=== PATIENT | female | born 1930 | race Caucasian/White ===

== ENCOUNTER → 2016-10-31 | Outpatient (CLI) | payer MEDICARE, OTHER ==
--- NOTE | 2016-10-31 12:03 | RAD ---
Renal ultrasound, 10/31/2016: History: Chronic kidney disease The right kidney measures 8.0 cm in length, while the left kidney measures 8.1 cm. There is bilateral renal cortical thinning and scarring. The renal parenchymal echogenicity is within normal limits. No renal mass is seen. There is no evidence of hydronephrosis. IMPRESSION: 1. Bilateral renal cortical scarring. 2. No evidence of renal obstruction.
== END | disposition home or self-care (01) ==
LOC: US 10:49
PROVIDERS: ATTEND Internal Medicine Nephrology
DX: N18.3 Chronic kidney disease, stage 3 (moderate) (principal); L90.5 Scar conditions and fibrosis of skin
CPT/HCPCS: 76770

== ENCOUNTER → 2017-01-22 | Outpatient (CLI) | payer MEDICARE, OTHER ==
--- NOTE | 2017-01-22 15:14 | RAD ---
Chest, 2 views, 01/22/2017: History: Dyspnea, hoarseness Comparison is made to a study from 12/20/2007. The heart size and pulmonary vascularity are normal. There is calcific plaquing and tortuosity of the thoracic aorta. Persistent linear perihilar opacities are compatible with scars. There is scarring over the pulmonary apices. No acute infiltrate is seen. A calcified granuloma is present in the left base. There is no evidence of pleural fluid. Mild spurring is present in the spine. There is a mild midthoracic vertebral compression fracture which was not present in 2007. Spinal stimulator leads have been removed. Postsurgical change is again noted at the right shoulder. IMPRESSION: 1. Bilateral perihilar linear parenchymal scarring. 2. Aortic atherosclerosis. 3. New mild mid thoracic vertebral compression fracture
== END | disposition home or self-care (01) ==
LOC: DXRADRC 14:25
PROVIDERS: ATTEND Physician Assistant
DX: I70.0 Atherosclerosis of aorta (principal); M48.54XA Collapsed vertebra, not elsewhere classified, thoracic region, initial encounter for fracture; R49.0 Dysphonia; R91.8 Other nonspecific abnormal finding of lung field
CPT/HCPCS: 71020

== ENCOUNTER → 2017-02-12 | Outpatient (CLI) | payer MEDICARE, OTHER ==
--- NOTE | 2017-02-12 13:30 | RAD ---
Bone densitometry scan, 02/12/2017: History: Ovarian failure, osteopenia The lumbar spine and right hip were examined utilizing a DEXA technique. The bone mineral density in the lumbar spine as measured from the L1-L4 levels is 1.25 g/sq cm. This yields a T score of 0.6 which is in the normal range. The lumbar spine T score on the previous study of 12/06/2015 was 0.9. The total T score at the right hip is -2.1 compatible with osteopenia. On the previous study the right hip T score was -1.9. IMPRESSION: 1. Normal lumbar spine bone mineral density. 2. Osteopenia at the right hip which has worsened slightly since 12/06/2015.
--- NOTE | 2017-02-12 14:49 | CARD ---
APPROVED REPORT EXAM: Two-dimensional and M-mode echocardiogram with Doppler and color Doppler. Other Information Quality : Average Rhythm : NSR INDICATION Dyspnea 2D DIMENSIONS Left Atrium(2D)3.8 (1.6-4.0cm)IVSd0.8 (0.7-1.1cm) Aortic Root(2D)2.6 (2.0-3.7cm)LVDd3.9 (3.9-5.9cm) LVOT Diameter2.0 (1.8-2.4cm)PWd0.8 (0.7-1.1cm) LVDs2.7 (2.5-4.0cm)FS (%) 29.7 % SV38.1 mlLVEF(%)57.4 (>50%) Aortic Valve AoV Peak Yobani.229.9cm/sAoV VTI55.7cm AO Peak GR.21.1mmHgLVOT Peak Yobani.116.3cm/s LVOT VTI 28.58cmAO Mean GR.12mmHg KELSIE (VMAX)1.53yk2XCS (VTI)1.57cm2 Mitral Valve MV E Ufzbinvb82.1cm/sMV DECEL UWXT427qp MV A Bhhwppuk94.1cm/sMV BRK10fr E/A Ratio0.9MV A Lbcgpxyq13ym MVA (PHT)3.56cm2 Tricuspid Valve TR P. Jrotyqot160ue/sRAP IEFYWAAQ3jyZf TR Peak Gr.05hfFuRORD94wdLe LEFT VENTRICLE The left ventricle is normal size. There is normal left ventricular wall thickness. Left ventricle sy stolic function is normal. The Ejection Fraction is 55-60%. There is normal LV segmental wall motion. The left ventricular diastolic function and filling is normal for age. RIGHT VENTRICLE The right ventricle is normal size. The right ventricular systolic function is normal. ATRIA The left atrium size is normal. The right atrium size is normal. The interatrial septum is intact wit h no evidence for an atrial septal defect or patent foramen ovale as noted on 2-D or Doppler imaging. AORTIC VALVE The aortic valve is mildly to moderately calcified. The aortic valve is trileaflet. Doppler and Color Flow revealed no significant aortic regurgitation. Calculated aortic valve area is 1.6 cm2 with maxi mum pressure gradient of 22 mmHg and mean pressure gradient of 12 mmHg. Doppler and color-flow analys is revealed mild aortic stenosis. MITRAL VALVE Mitral annular calcification is mild to moderate. There is no mitral valve stenosis. Doppler and [place] r Flow revealed trace mitral regurgitation. TRICUSPID VALVE The tricuspid valve is normal in structure and function. Doppler and Color Flow revealed mild tricusp id regurgitation. The PA pressure was estimated at 42 mmHg. There is no tricuspid valve stenosis. PULMONIC VALVE The pulmonic valve is not well visualized. Doppler and Color Flow revealed no pulmonic valvular regur gitation. There is no pulmonic valvular stenosis. GREAT VESSELS The aortic root is normal in size. Pulmonary veins not recorded. The IVC is normal in size and collap ses >50% with inspiration. PERICARDIAL EFFUSION There is no evidence of significant pericardial effusion. Critical Notification Critical Value: No <Conclusion> Left ventricle systolic function is normal. The Ejection Fraction is 55-60%. There is normal LV segmental wall motion. Doppler and color-flow analysis revealed mild aortic stenosis. Mitral regurgitation. Mild tricuspid regurgitation. The PA pressure was estimated at 42 mmHg. There is no evidence of significant pericardial effusion.
== END | disposition home or self-care (01) ==
LOC: DXRAD 12:52
PROVIDERS: ATTEND Physician Assistant
DX: I08.1 Rheumatic disorders of both mitral and tricuspid valves (principal); E28.39 Other primary ovarian failure; I31.3 Pericardial effusion (noninflammatory); M85.80 Other specified disorders of bone density and structure, unspecified site; M40.204 Unspecified kyphosis, thoracic region; R06.00 Dyspnea, unspecified
CPT/HCPCS: 77080; 93306

== ENCOUNTER → 2017-12-24 | Outpatient (CLI) | payer MEDICARE, OTHER ==
--- NOTE | 2017-12-24 15:20 | RAD ---
EXAM: Lumbar spine, 3 views. HISTORY: Pain. COMPARISON: None. FINDINGS: Frontal, lateral, and coned sacral views of the lumbar spine are obtained. There is minimal lumbar dextrocurvature. There is lumbar hyperlordosis. There is grade 1 anterolisthesis of L4 on L5, measuring 9 mm. There is grade 1 anterolisthesis of L3 on L4, measuring 2 mm. There is degenerative endplate remodeling with disc space narrowing, osteophytosis and facet arthropathy predominantly at L4-L5 and L5-S1. IMPRESSION: 1. Multilevel degenerative change, primarily at the lower lumbar levels. 2. Lumbar hyperlordosis and minimal dextrocurvature. 3. Grade 1 anterolisthesis of L4 and L5, and to a lesser extent, L3 on L4. Electronically signed by: Carmella Sánchez MD (12/24/2017 3:16 PM) [facility]
== END | disposition home or self-care (01) ==
LOC: PMG 14:18
PROVIDERS: ATTEND Physician Assistant
DX: M48.061 Spinal stenosis, lumbar region without neurogenic claudication (principal); M12.88 Other specific arthropathies, not elsewhere classified, other specified site
CPT/HCPCS: 72100

== ENCOUNTER 2018-04-18 11:01 | Emergency (ER) | payer MEDICARE, OTHER ==
[~2018-04-18] VITALS: Ht 160 cm; Wt 62.1 kg
[2018-04-18] MEDS ORDERED: DIPHTH,PERTUSS(ACELL),TET TOX 0.5 ML DISP.SYRIN. VAX IM ONE (11:30)
--- NOTE | 2018-04-18 12:18 | RAD ---
CT of the head without contrast, 04/18/2018: HISTORY: Fall There is moderate cerebral atrophy. There is mild cerebellar atrophy. The ventricles are within normal limits in size. There is no shift of the midline structures. There is no evidence of acute intracranial hemorrhage or mass effect. Several mild bilateral deep white matter lucencies are evident compatible with chronic ischemic change. No abnormal extra-axial fluid collection or mass is seen. There is calcific plaquing of the distal internal carotid arteries. IMPRESSION: 1. Cerebral and cerebellar atrophy. 2. No acute intracranial abnormality is detected. CT of the facial bones without contrast, 04/18/2018: Noncontrast scans were obtained with multiplanar reconstructions produced. No fracture is identified. There is mild mucosal thickening in the left maxillary and right frontal sinuses. No free fluid is evident in the paranasal sinuses. The orbital contents are unremarkable. IMPRESSION: No acute facial bone abnormality is detected. Electronically signed by: Patrick Lugo MD (04/18/2018 12:14 PM) [facility]
--- NOTE | 2018-04-18 12:26 | RAD ---
CT of the cervical spine without contrast, 04/18/2018: HISTORY: Fall Noncontrast scans were obtained with multiplanar reconstructions produced. There is moderate disc space narrowing at C5-6 and C6-7 with anterior and posterior marginal spurring. There is a lesser degree of disc space narrowing at C7-T1. Moderate hypertrophic degenerative changes are evident at multiple facet joints bilaterally. There is slight anterolisthesis at C7-T1 and at C4-5 which appears to be due to facet joint arthropathy. No fracture is identified. No high-grade central spinal stenosis is seen. Moderate foraminal stenosis is present bilaterally at several levels. IMPRESSION: 1. Moderate multilevel degenerative change. 2. No acute bony abnormality is detected. PQRS Compliance Statement: One or more of the following individualized dose reduction techniques were utilized for this examination: 1. Automated exposure control 2. Adjustment of the mA and/or kV according to patient size 3. Use of iterative reconstruction technique Electronically signed by: Patrick Lugo MD (04/18/2018 12:22 PM) [facility]
--- NOTE | 2018-04-18 12:27 | RAD ---
Left shoulder, 3 views, 04/18/2018: HISTORY: Fall The bony structures are demineralized. No fracture or dislocation is identified. Degenerative change is present at the AC joint. IMPRESSION: No acute bony abnormality is detected. Electronically signed by: Patrick Lugo MD (04/18/2018 12:23 PM) [facility]
[2018-04-18] MEDS ORDERED: HYDR-971 PO (13:14)
--- NOTE | 2018-04-18 13:14 | PHYS DOC ---
Past History Past Medical History: Arthritis, High Cholesterol, Hypertension, Other Past Surgical History: Hysterectomy, Other Alcohol Use: None Drug Use: None Adult General Chief Complaint Chief Complaint: MECHANICAL FALL HPI HPI Patient is a 87 year old female who presents with complaining of a fall. Patient states she tripped outside and fell on her face on concrete area without loss of consciousness. Patient complaining of pain in her face and left shoulder and left knee and hand rated her pain 8/10. Patient denies focal neuro deficit, nausea and vomiting, fever and chills. Patient is not up-to-date with tetanus immunization. Review of Systems Review of Systems Constitutional: Denies fever or chills [] Eyes: Denies change in visual acuity, redness, or eye pain [] HENT: Denies nasal congestion or sore throat [] Respiratory: Denies cough or shortness of breath [] Cardiovascular: No additional information not addressed in HPI [] GI: Denies abdominal pain, nausea, vomiting, bloody stools or diarrhea [] : Denies dysuria or hematuria [] Musculoskeletal: Denies back pain or joint pain [] Integument: Denies rash or skin lesions, reports skin contusion and abrasion Neurologic: Denies headache, focal weakness or sensory changes [] Endocrine: Denies polyuria or polydipsia [] All other systems were reviewed and found to be within normal limits, except as documented in this note. Current Medications Current Medications Current Medications Medications (Trade) Dose Ordered Sig/Caio Start Time Stop Time Status Last Admin Dose Admin Diphtheria/ Tetanus/Acell Pertussis (Boostrix) 0.5 ml ONCE ONCE 04/18/18 11:30 04/18/18 11:35 DC 04/18/18 12:17 0.5 ML Fentanyl Citrate (Fentanyl 2ml Vial) 50 mcg 1X ONCE 04/18/18 11:30 04/18/18 11:35 DC 04/18/18 12:24 50 MCG Allergies Allergies Allergies Coded Allergies Type Severity Reaction Last Updated Verified No Known Drug Allergies 04/18/18 No Physical Exam Physical Exam Constitutional: Well developed, well nourished, moderate distress, non-toxic appearance. [] HENT: Normocephalic, facial contusion in nose and upper lips with a through to through 0.5 cm puncture wound in upper lip extended to inside of oral mucosa with struck frenulum upper lip between upper incisor teeth that removed with using a Q-tip , bilateral external ears normal, oropharynx moist, no oral exudates. Eyes: PERRLA, EOMI, conjunctiva normal, no discharge. [] Neck: Normal range of motion, no tenderness, supple, no stridor. [] Cardiovascular:Heart rate regular rhythm, no murmur [] Lungs & Thorax: Bilateral breath sounds clear to auscultation [] Abdomen: Bowel sounds normal, soft, no tenderness, no masses, no pulsatile masses. [] Skin: Warm, dry, no erythema, no rash, multiple abrasion and contusion in the left side extremities. [] Back: No tenderness, no CVA tenderness. [] Extremities: No tenderness, no cyanosis, no clubbing, ROM intact, no edema. [] Neurologic: Alert and oriented X 3, normal motor function, normal sensory function, no focal deficits noted. [] Psychologic: Affect normal, judgement normal, mood normal. [] Current Patient Data Vital Signs Vital Signs Date Time Temp Pulse Resp B/P (MAP) Pulse Ox O2 Delivery O2 Flow Rate FiO2 04/18/18 12:24 99 Room Air 04/18/18 11:33 98.2 85 22 EKG EKG [] Radiology/Procedures Radiology/Procedures [address] [address] IMAGING REPORT Signed PATIENT: CAMILO WISE ACCOUNT: [id number] : 1930 LOCATION: ER AGE: 87 SEX: F EXAM STATUS: REG ER ORD. PHYSICIAN: SAM HART MD REASON: fall PROCEDURE: SHOULDER 2+V LEFT Left shoulder, 3 views, 04/18/2018: HISTORY: Fall The bony structures are demineralized. No fracture or dislocation is identified. Degenerative change is present at the AC joint. IMPRESSION: No acute bony abnormality is detected. Electronically signed by: Patrick Lugo MD (04/18/2018 12:23 PM) [facility] DICTATED AND SIGNED BY: PATRICK LUGO MD DATE: 04/18/18 1222 CC: SAM HART MD; JENNIFER REY ~ [address] [place] [address] IMAGING REPORT Signed PATIENT: CAMILO WISE ACCOUNT: [id number] : 1930 LOCATION: ER AGE: 87 SEX: F EXAM STATUS: REG ER ORD. PHYSICIAN: SAM HART MD REASON: fall PROCEDURE: CT CERVICAL SPINE WO CONTRAST CT of the cervical spine without contrast, 04/18/2018: HISTORY: Fall Noncontrast scans were obtained with multiplanar reconstructions produced. There is moderate disc space narrowing at C5-6 and C6-7 with anterior and posterior marginal spurring. There is a lesser degree of disc space narrowing at C7-T1. Moderate hypertrophic degenerative changes are evident at multiple facet joints bilaterally. There is slight anterolisthesis at C7-T1 and at C4-5 which appears to be due to facet joint arthropathy. No fracture is identified. No high-grade central spinal stenosis is seen. Moderate foraminal stenosis is present bilaterally at several levels. IMPRESSION: 1. Moderate multilevel degenerative change. 2. No acute bony abnormality is detected. PQRS Compliance Statement: One or more of the following individualized dose reduction techniques were utilized for this examination: 1. Automated exposure control 2. Adjustment of the mA and/or kV according to patient size 3. Use of iterative reconstruction technique Electronically signed by: Patrick Lugo MD (04/18/2018 12:22 PM) [facility] DICTATED AND SIGNED BY: PATRICK LUGO MD DATE: 04/18/18 1215 CC: SAM HART MD; JENNIFER REY PA ~ [address] [id number] IMAGING REPORT Signed PATIENT: CAMILO WISE ACCOUNT: [id number] : 1930 LOCATION: ER AGE: 87 SEX: F EXAM STATUS: DEP ER ORD. PHYSICIAN: SAM HART MD REASON: fall PROCEDURE: FOOT LEFT 3V Left foot, 3 views, 04/18/2018: History: Fall There is patchy bony demineralization. No fracture or dislocation is identified. There are mild scattered degenerative changes including the first MTP joint. Mild subcutaneous edema is evident. IMPRESSION: No acute bony abnormality is detected. DICTATED AND SIGNED BY: PATRICK LUGO MD DATE: 04/18/18 6805 CC: SAM HART MD; JENNIFER REY ~ [address] [address] IMAGING REPORT Signed PATIENT: CAMILO WISE ACCOUNT: [id number] : 1930 LOCATION: ER AGE: 87 SEX: F EXAM STATUS: REG ER ORD. PHYSICIAN: SAM HART MD REASON: fall PROCEDURE: CT HEAD AND MAXILLOFACIAL WO CT of the head without contrast, 04/18/2018: HISTORY: Fall There is moderate cerebral atrophy. There is mild cerebellar atrophy. The ventricles are within normal limits in size. There is no shift of the midline structures. There is no evidence of acute intracranial hemorrhage or mass effect. Several mild bilateral deep white matter lucencies are evident compatible with chronic ischemic change. No abnormal extra-axial fluid collection or mass is seen. There is calcific plaquing of the distal internal carotid arteries. IMPRESSION: 1. Cerebral and cerebellar atrophy. 2. No acute intracranial abnormality is detected. CT of the facial bones without contrast, 04/18/2018: Noncontrast scans were obtained with multiplanar reconstructions produced. No fracture is identified. There is mild mucosal thickening in the left maxillary and right frontal sinuses. No free fluid is evident in the paranasal sinuses. The orbital contents are unremarkable. IMPRESSION: No acute facial bone abnormality is detected. Electronically signed by: Patrick Lugo MD (04/18/2018 12:14 PM) [facility] DICTATED AND SIGNED BY: PATRICK LUGO MD DATE: 04/18/18 1208 CC: SAM HART MD; JENNIFER REY ~ [address] [address] IMAGING REPORT Signed PATIENT: CAMILO WISE ACCOUNT: [id number] : 1930 LOCATION: ER AGE: 87 SEX: F EXAM STATUS: DEP ER ORD. PHYSICIAN: SAM HART MD REASON: fall PROCEDURE: KNEE LEFT 3V 3 views, 04/18/2018: History: Fall No fracture or dislocation is identified. There is mild subchondral sclerosis along the femoral condyles. No joint effusion is seen. IMPRESSION: No acute bony abnormality is detected. DICTATED AND SIGNED BY: PATRICK LUGO MD DATE: 04/18/18 1511 CC: SAM HART MD; JENNIFER REY ~ Course & Med Decision Making Course & Med Decision Making Pertinent Imaging studies reviewed. (See chart for details) Evaluation of patient in ER showed 87-year-old female patient with mechanical fall and injury to her face and left upper and lower extremity. Multiple aches and CT was unremarkable. Patient treated with fentanyl and had Tdap with improvement of her pain. The upper lip and oral mucosa laceration did not need repair. Dragon Disclaimer Dragon Disclaimer This electronic medical record was generated, in whole or in part, using a voice recognition dictation system. Departure Departure: Impression: Primary Impression: Facial contusion Additional Impressions: Laceration of oral cavity Fall at home Sprain of left shoulder Contusion of knee, left Injury of left great toe Disposition: HOME, SELF-CARE (at 1311) Condition: IMPROVED Referrals: JENNIFER REY (PCP) Patient Instructions: Contusion, Fall Prevention and Home Safety, Mouth Injury , Generic Additional Instructions: Drink plenty of liquids Follow-up with your primary care physician in 3-5 days Return to ER if not getting better Apply ice on the affected area Scripts Hydrocodone Bit/Acetaminophen (NORCO 5-325 TABLET) 1 Each Tablet 1 TAB PO PRN Q6HRS PRN for PAIN, #20 TAB 0 Refills Prov: SAM HART MD 04/18/18 Problem Qualifiers SAM HART MD Apr 18, 2018 13:14
[2018-04-18 13:47] VITALS: BP 162/79
--- NOTE | 2018-04-18 15:16 | RAD ---
3 views, 04/18/2018: History: Fall No fracture or dislocation is identified. There is mild subchondral sclerosis along the femoral condyles. No joint effusion is seen. IMPRESSION: No acute bony abnormality is detected.
--- NOTE | 2018-04-18 15:19 | RAD ---
Left foot, 3 views, 04/18/2018: History: Fall There is patchy bony demineralization. No fracture or dislocation is identified. There are mild scattered degenerative changes including the first MTP joint. Mild subcutaneous edema is evident. IMPRESSION: No acute bony abnormality is detected.
== END 2018-04-18 13:40 | disposition home or self-care (01) ==
LOC: ER 11:01
DX: S01.512A Laceration without foreign body of oral cavity, initial encounter (principal); S43.402A Unspecified sprain of left shoulder joint, initial encounter; S80.02XA Contusion of left knee, initial encounter; S99.921A Unspecified injury of right foot, initial encounter; M19.90 Unspecified osteoarthritis, unspecified site; E78.00 Pure hypercholesterolemia, unspecified; I10 Essential (primary) hypertension; W01.198A Fall on same level from slipping, tripping and stumbling with subsequent striking against other object, initial encounter; Y93.89 Activity, other specified; Y92.098 Other place in other non-institutional residence as the place of occurrence of the external cause; Y99.8 Other external cause status
CPT/HCPCS: 70450; 70486; 72125; 73030; 73562; 73630; 90471; 90715; 96372; 99284; J3010

== ENCOUNTER → 2018-09-24 | Outpatient (CLI) | payer MEDICARE, OTHER ==
[~2018-09-24] MED LIST: HYDR-3165 PO
--- NOTE | 2018-09-24 15:41 | RAD ---
DATE: 09/24/2018 EXAM: DIGITAL SCREEN BILAT W/CAD HISTORY: Routine screening COMPARISON: 09/24/2016 This study was interpreted with the benefit of Computerized Aided Detection (CAD). Breast Density: SCATTERED The breast parenchyma shows scattered fibroglandular densities. Breast parenchyma level B. FINDINGS: No new or enlarging breast densities are seen. Benign type calcifications are noted. No suspicious microcalcifications are identified. IMPRESSION: Stable mammograms without evidence of malignancy. BI-RADS CATEGORY: 2 BENIGN FINDING(S) RECOMMENDED FOLLOW-UP: 12M 12 MONTH FOLLOW-UP PQRS compliance statement: Patient information was entered into a reminder system with a target due date for the next mammogram. Mammography is a sensitive method for finding small breast cancers, but it does not detect them all and is not a substitute for careful clinical examination. A negative mammogram does not negate a clinically suspicious finding and should not result in delay in biopsying a clinically suspicious abnormality. "Our facility is accredited by the [employer] Mammography Program."
== END | disposition home or self-care (01) ==
LOC: MAMMO 14:03
PROVIDERS: ATTEND Physician Assistant
DX: Z12.31 Encounter for screening mammogram for malignant neoplasm of breast (principal)
CPT/HCPCS: 77067

== ENCOUNTER → 2020-09-15 | Outpatient (CLI) | payer MEDICARE, OTHER ==
--- NOTE | 2020-09-16 01:59 | RAD ---
EXAM: DUAL ENERGY X-RAY ABSORPTIOMETRY (DEXA). HISTORY: Postmenopausal screening. FINDINGS: The lowest measured T-score is -2.5 in the right femoral neck, based on a bone mineral dens ity of 0.687 g/cm^2. Refer to the worksheets for full detail. In comparison with the baseline study of 12/06/2015, average bone mineral density at the lumbar spine has changed -8.7%, while the average density at the hips has changed -5.4%. IMPRESSION: Low bone mass. Bone mineral density yields a T-score between -1.0 and -2.5. Fracture risk is increase d. FRAX was not calculated. METHODOLOGY: Dual energy x-ray absorptiometry was performed to measure bone mineral density. The foll owing analysis is based on the 2019 Official Positions of the International Society for Clinical Dens itometry: Measurements of the hips and the average of L1-L4 are preferred. When the spine and/or hip cannot be feasibly measured or interpreted, or in the setting of hyperparathyroidism, distal radial bone minera l density may be measured. The lumbar spine T-score is based on the average bone mineral density of L1-L4. In the setting of art ifact or anatomic abnormality, some lumbar levels may be excluded, and the remaining levels used for calculation. A single lumbar level is not used for diagnosis, and if only a single level is available for assessment, another anatomic site will be used to assign a diagnosis. The hip T-score is based on the bone mineral density measurement of the femoral neck or total proxima l femur of either side, whichever is lowest. Bilateral mean values are not used for diagnosis. The forearm T-score is derived from 33% of the distal radius of the nondominant forearm. For postmenopausal and perimenopausal women, and men age 50 or older, of all ethnic groups, T-scores are calculated through comparison of the current measurement with the NHANES III database standard fo r females aged 20-29 years. The lowest T-score of the evaluated anatomic sites is used to a ssign a diagnosis based on the World Health Organization densitometric classification. In premenopausal females and males younger than age 50, a Z-score is calculated based on population s pecific reference data for patient sex and self-reported ethnicity. Electronically signed by: Ruddy English MD (09/16/2020 1:56 AM) [facility]
--- NOTE | 2020-09-16 15:13 | RAD ---
DATE: 09/15/2020 1:36 PM EXAM: DIGITAL SCREEN BILAT W/CAD HISTORY: Screening COMPARISON: 09/24/2018 Bilateral full field craniocaudal and mediolateral oblique images were obtained using digital technique. This study was interpreted with the benefit of Computerized Aided Detection (CAD). FINDINGS: Breast Density: FATTY The Breast Parenchyma is primarily fatty replaced. Breast parenchyma level density A. No suspicious masses, microcalcifications or architectural distortion is present to suggest malignancy in either breast. The visualized axillae are unremarkable. IMPRESSION: No mammographic evidence of malignancy. BI-RADS CATEGORY: 1 NEGATIVE RECOMMENDED FOLLOW-UP: 12M 12 MONTH FOLLOW-UP Annual screening mammography is recommended, unless clinically indicated sooner based on symptoms or change in physical exam. PQRS compliance statement: Patient information was entered into a reminder system with a target due date for the next mammogram. Mammography is a sensitive method for finding small breast cancers, but it does not detect them all and is not a substitute for careful clinical examination. A negative mammogram does not negate a clinically suspicious finding and should not result in delay in biopsying a clinically suspicious abnormality. "Our facility is accredited by the [employer] Mammography Program."
== END ==
LOC: MAMMO 13:30
PROVIDERS: ATTEND Physician Assistant
DX: Z12.31 Encounter for screening mammogram for malignant neoplasm of breast (principal); M85.80 Other specified disorders of bone density and structure, unspecified site; Z78.0 Asymptomatic menopausal state
CPT/HCPCS: 77067; 77080

== ENCOUNTER → 2021-09-22 | Outpatient (CLI) | payer MEDICARE, OTHER ==
--- NOTE | 2021-09-22 16:09 | RAD ---
Digital Mammogram Bilateral History: Routine screening Technique: 2-D digital CC and MLO views were obtained. CAD - computer aided detection was utilize d. Comparison: Mammograms from 09/15/2020, 09/24/2018. Findings: Breast Tissue Density B : There are scattered areas of fibroglandular density There are no suspicious masses, malignant appearing calcifications, or areas of architectural distort ion. Impression: No evidence of malignancy. Assessment: BI-RADS Category 1: Negative. Recommendation: Routine screening mammograms.. The patient will receive a letter with the results in the mail. Patient information will be entered i nto the mammography reminder system with a target recall date for the next mammogram. A reminder mey er will be generated. Electronically signed by: Nereyda García MD (09/22/2021 4:07 PM) [email or web address]
== END ==
LOC: MAMMO 14:54
PROVIDERS: ATTEND Physician Assistant
DX: Z12.31 Encounter for screening mammogram for malignant neoplasm of breast (principal)
CPT/HCPCS: 77067